=== PATIENT | male | born 1980 | race Caucasian/White ===

== ENCOUNTER 2016-12-10 14:13 | Emergency (ER) | END 2016-12-10 18:51 | disposition home or self-care (01) | DX: J20.9 Acute bronchitis, unspecified (principal) | CPT/HCPCS: 71010; 94640; 94664; 96374; J1100; Z7502; Z7610 ==

== ENCOUNTER 2016-12-23 01:50 | Emergency (ER) | payer SELFPAY ==
[~2016-12-23] VITALS: Ht 157.5 cm; Wt 90.5 kg
[~2016-12-23 01:50] MED LIST: ACET500T98 PO; ALBU8.5H3 INH; AUG875 PO; CETI-240 PO; FLUT16SP17 NASAL; NAPR-260 PO; ONDA4TAB35 PO; PRED50 PO
[2016-12-23 01:58] VITALS: Ht 157.5 cm; Wt 90.5 kg
== END 2016-12-23 03:15 | disposition left against medical advice (07) ==
LOC: FTE 01:50
DX: Z53.21 Procedure and treatment not carried out due to patient leaving prior to being seen by health care provider (principal)

== ENCOUNTER 2017-10-25 19:23 | Emergency (ER) | END 2017-10-25 19:29 | disposition left against medical advice (07) ==